=== PATIENT | male | born 1955 | race Caucasian/White ===

== ENCOUNTER 2017-07-10 06:05 | Day surgery (SDC) | payer BC ==
[2017-07-02 14:34] VITALS: BMI 27.5
[~2017-07-10 06:05] MED LIST: LACTATED RINGERS 1,000 ML IV SCH
[2017-07-10] MEDS: CYCLOPENTOLATE 1% OPHTH SOLN 2 ML BTL OP ONE ×2 (06:15→06:33)
[2017-07-10] MEDS: FLURBIPROFEN 0.03% OPHTH DROPS 2.5 ML BTL OP ONE ×3 (06:18→06:36)
[2017-07-10] MEDS: PHENYLEPHRINE 10% OPHTH DROPS 5 ML BTL OP ONE ×2 (06:21→06:30)
[2017-07-10 06:26] VITALS: RESP 16; TEMP 97.2
[2017-07-10] MEDS ORDERED: PROPOFOL 10 MG/ML 20 ML VIAL IV ONE (07:46)
[2017-07-10] MEDS ORDERED: LACTATED RINGERS 1,000 ML IV ONE (07:46)
[2017-07-10] MEDS: BUPIVACAINE (PF) 0.75% 5 ML, HYALURONIDASE, HUMAN RECOMB 150 UNIT, LIDOCAINE 2% (PF) 10... MISCELLANE ONE ×6 (07:46→07:57)
[2017-07-10] MEDS ORDERED: BALANCED SALT IRRIG SOLN COMB2 15 ML IRRIG.SOLN IRRIGATION ONE ×2 (07:46→08:00)
[2017-07-10] MEDS: TIMOLOL 0.5% OPHTH DROPS 5 ML BTL OP ONE ×2 (07:50→08:00)
[2017-07-10] MEDS: GENTAMICIN/PREDNISOL AC OPHTH OINT 3.5GM OPHTHALMIC ONE ×2 (07:50→08:00)
[2017-07-10] MEDS ORDERED: EPINEPHrine (PF) 0.5 ML in BALANCED SALT IRRIG SOLN COMB2 500 ML IRRIGATION ONE (07:58)
[2017-07-10] MEDS ORDERED: HYALURONATE SODIUM INTRAOCULAR 1 EACH SYRINGE (10MG/ML) INTRAOCULA ONE (08:00)
--- NOTE | 2017-07-10 08:15 | P.OP ---
Date of Procedure: 07/10/17 Procedure(s) Performed: PREOPERATIVE DIAGNOSIS: Cataract, left eye. POSTOPERATIVE DIAGNOSIS: Cataract, left eye. OPERATION: Phacoemulsification cataract, left eye. DESCRIPTION OF PROCEDURE: The patient was taken to the preoperative holding area. Intravenous Propofol was given so as to bring about adequate sedation. The following mixture was given for local anesthesia: 5 mL of 2% lidocaine, 5 mL of 0.75% Marcaine, and 1 mL of Wydase. Approximately 4 mL was injected in the retrobulbar space of the surgical eye. Additional 1 mL was then directed to the temporal area of the surgical eye. This was performed to allow adequate neurological block of the facial muscles. The patient was revived and then taken into the operative room. The patient was prepped and draped in the usual sterile manner for the operative eye. A lid speculum was put into position. The conjunctiva was resected back from the limbus in the 12 o'clock position. Bleeding was controlled with electrocautery. A #69 blade was then used and a half-thickness scleral incision approximately 1-mm posterior to the limbus was made on bare sclera. This was shelved in the clear cornea using a crescent knife. Next a 15-degree blade was used to make a stab incision at the 3 o' clock position at the corneolimbal interface. Keratome blade was then used and the superior wound was extended into the anterior chamber. Viscoelastic was injected into the anterior chamber and to maintain its form. Next, a cystotome was used and a continuous anterior capsulotomy was made without difficulty. Hydrodissection using a blunt cannula and BSS was performed. Phaco probe was then employed and a groove extending from 12 to 6 o'clock in the lens was created. A Gennaro wand was used through the stab incision so as to perform a divide and conquer technique. Next an irrigation aspiration probe was utilized and any residual cortex was removed from the eye. Again, viscoelastic was injected into the anterior chamber. An Karlos posterior chamber lens implant was placed in the cartridge and injected into the anterior chamber without difficulty. The SinBuySimpleey hook was utilized to spin the lens into position and this was again performed without any difficulty. The irrigation and aspiration probe was again employed and any residual viscoelastic was removed from the eye. Then BSS was injected into the limbal stab incision and the anterior chamber re-inflated. The conjunctiva was reapproximated using electrocautery. One drop of 0.25% Timoptic was placed over the corneal along with TobraDex ophthalmic ointment. Two sterile patches and a Norton eye shield were taped into position. The patient was transported to the recovery room in stable condition. Pathology: none sent Condition: stable Disposition: same day
[2017-07-10 08:35] VITALS: BP 138/90; PULSE 68
== END 2017-07-10 08:56 | disposition home or self-care (01) ==
LOC: OR 06:05
PROVIDERS: ATTEND Ophthalmology
DX: H26.9 Unspecified cataract (principal); E78.5 Hyperlipidemia, unspecified; Z79.82 Long term (current) use of aspirin; Z79.899 Other long term (current) drug therapy
CPT/HCPCS: 66984; V2632; J3470; J2001; J0171; J2704

== ENCOUNTER → 2017-10-24 | Outpatient (CLI) | payer BC ==
[2017-10-24 07:40] LABS: Basophils % (A) 1 %; Eosinophils # (A) 0.2 k/uL (0-0.7); Eosinophils % (A) 4 %; HCT 45.3 % (39.0-53.0); HGB 15.2 gm/dL (13.0-17.5); Lymphocytes # (A) 1.1 k/uL (1.0-4.8); Lymphocytes % (A) 24 %; MCH 31.9 pg (25.0-35.0); MCHC 33.5 g/dL (31.0-37.0); MCV 95.3 fL (80.0-100.0); Mean Platelet Volume 6.8; Monocytes # (A) 0.4 k/uL (0-1.0); Monocytes % (A) 9 %; Neutrophils # (A) 2.8 k/uL (1.3-7.7); Neutrophils % (A) 60 %; Platelet Count 228 k/uL (150-450); RBC 4.76 m/uL (4.30-5.90); RDW 12.1 % (11.5-15.5); WBC 4.6 k/uL (3.8-10.6)
[2017-10-24 11:31] LABS: ALT 39 U/L (21-72); AST 31 U/L (17-59); Albumin 4.3 g/dL (3.5-5.0); Alkaline Phosphatase 47 U/L (38-126); Anion Gap 14 mmol/L; Blood Urea Nitrogen 14 mg/dL (9-20); Calcium 9.4 mg/dL (8.4-10.2); Carbon Dioxide 27 mmol/L (22-30); Chloride 102 mmol/L (98-107); Cholesterol 156 mg/dL (<200); Glucose 86 mg/dL (74-99); HDL Cholesterol 57 mg/dL (40-60); LDL Cholesterol,Calculated 75 mg/dL (0-99); Potassium 4.5 mmol/L (3.5-5.1); Sodium 143 mmol/L (137-145); Total Bilirubin 0.6 mg/dL (0.2-1.3); Total Protein 6.8 g/dL (6.3-8.2); Triglycerides 120 mg/dL (<150)
[2017-10-24 11:46] LABS: T4, Free (Free Thyroxine) 1.05 ng/dL (0.78-2.19)
[2017-10-24 17:34] LABS: Hemoglobin A1C 5.4 % (4.0-6.0)
== END | disposition home or self-care (01) ==
LOC: LABWHC1 06:43
PROVIDERS: ATTEND Internal Medicine Geriatric Medicine
DX: Z00.00 Encounter for general adult medical examination without abnormal findings (principal); K21.9 Gastro-esophageal reflux disease without esophagitis; E78.00 Pure hypercholesterolemia, unspecified; R79.9 Abnormal finding of blood chemistry, unspecified; N40.0 Benign prostatic hyperplasia without lower urinary tract symptoms; R00.1 Bradycardia, unspecified
CPT/HCPCS: 36415; 80053; 80061; 83036; 84153; 84439; 84443; 85025

== ENCOUNTER → 2019-01-09 | Outpatient (CLI) | payer MEDICARE, BC ==
[2019-01-09 09:03] LABS: Basophils % (A) 1 %; Eosinophils # (A) 0.2 k/uL (0-0.7); Eosinophils % (A) 3 %; HCT 47.3 % (39.0-53.0); HGB 15.8 gm/dL (13.0-17.5); Lymphocytes # (A) 1.1 k/uL (1.0-4.8); Lymphocytes % (A) 22 %; MCH 33.5 pg (25.0-35.0); MCHC 33.5 g/dL (31.0-37.0); MCV 100.2 fL (80.0-100.0); Monocytes # (A) 0.4 k/uL (0-1.0); Monocytes % (A) 7 %; Neutrophils # (A) 3.3 k/uL (1.3-7.7); Neutrophils % (A) 64 %; Platelet Count 209 k/uL (150-450); RBC 4.72 m/uL (4.30-5.90); RDW 13.1 % (11.5-15.5); WBC 5.1 k/uL (3.8-10.6)
[2019-01-09 16:09] LABS: African American GFR (CKD) 104.2 (60.0-200.0); Albumin 4.8 g/dL (3.80-4.90); Albumin/Globulin Ratio 2.53 (1.60-3.17); Anion Gap 9.4 mmol/L (4.00-12.00); BUN/Creat Ratio 14.44 Ratio (12.00-20.00); Calcium 9.3 mg/dL (8.7-10.3); Carbon Dioxide 27.6 mmol/L (21.6-31.8); Chol/HDL Ratio 3.02; Globulin 1.9 g/dL (1.6-3.3); Non-African American GFR(CKD) 89.9 (60.0-200.0); Potassium 4.5 mmol/L (3.5-5.5); Total Bilirubin 0.6 mg/dL (0.2-1.2); Total Protein 6.7 g/dL (6.2-8.2)
== END | disposition home or self-care (01) ==
LOC: LABWHC1 08:01
PROVIDERS: ATTEND Internal Medicine Geriatric Medicine
DX: Z00.00 Encounter for general adult medical examination without abnormal findings (principal); K21.9 Gastro-esophageal reflux disease without esophagitis; E78.2 Mixed hyperlipidemia; R00.1 Bradycardia, unspecified; N40.0 Benign prostatic hyperplasia without lower urinary tract symptoms
CPT/HCPCS: 36415; 80053; 80061; 82550; 84153; 84443; 85025

== ENCOUNTER 2019-08-26 07:08 | Day surgery (SDC) | payer BC, MEDICARE ==
[2019-08-22 17:58] VITALS: BMI 26.9
[~2019-08-26 07:08] MED LIST changes: +TOBRA-DEXAMET 0.3-0.1% OPHTH OINT 3.5 GM TUBE OPHTHALMIC ONE
[2019-08-26] MEDS: CYCLOPENTOLATE 1% OPHTH SOLN 2 ML BTL OP ONE ×3 (07:55→08:13)
[2019-08-26 07:58] VITALS: TEMP 97.6
[2019-08-26] MEDS: PHENYLEPHRINE 10% OPHTH DROPS 5 ML BTL OP ONE ×3 (07:58→08:16)
[2019-08-26] MEDS: KETOROLAC 0.5% OPHTH DROPS 5 ML BTL OP ONE ×3 (08:01→08:19)
[2019-08-26] MEDS ORDERED: fentaNYL (PF) 50 MCG/ML 2 ML AMP ONE (08:39)
[2019-08-26] MEDS ORDERED: MIDAZOLAM 2 MG/2 ML VIAL ONE (08:39)
[2019-08-26] MEDS ORDERED: PROPOFOL 10 MG/ML 20 ML VIAL IV ONE (08:39)
[2019-08-26] MEDS ORDERED: BALANCED SALT IRRIG SOLN COMB2 15 ML IRRIG.SOLN INTRAOCULA ONE (08:49)
[2019-08-26] MEDS ORDERED: HYALURONATE SODIUM INTRAOCULAR 1 EACH SYRINGE (10MG/ML) INTRAOCULA ONE (08:49)
[2019-08-26] MEDS ORDERED: EPINEPHrine (PF) 0.5 ML in BALANCED SALT IRRIG SOLN COMB2 500 ML IRRIGATION ONE (08:50)
--- NOTE | 2019-08-26 09:05 | P.OP ---
Date of Procedure: 08/26/19 Procedure(s) Performed: PREOPERATIVE DIAGNOSIS: Cataract, right eye. POSTOPERATIVE DIAGNOSIS: Cataract, right eye. OPERATION: Phacoemulsification of cataract, intraocular lens placement, right eye. DESCRIPTION OF PROCEDURE: The patient was taken to the operating room. Intravenous Propofol was given so as to bring about sedation. The following mixture was given for local anesthesia: 5 mL of 2% lidocaine, 5 mL of 0.75% Marcaine, and 1 mL of Wydase. Approximately 4 mL was injected in the retrobu lbar space of the surgical eye. Additional 1 mL was then directed to the temporal area of the surgical eye. This was performed to allow adequate neurological block of the facial muscles. The patient was revived. The patient was prepped and draped in the usual sterile manner for the operative eye. A lid speculum was put into position. The conjunctiva was resected back from the limbus in the 12 o'clock position. Bleeding was controlled with electrocautery. A #69 blade was then used and a half-thickness scleral incision approximately 1-mm posterior to the limbus was made on bare sclera. This was shelved in the clear cornea using a crescent knife. Next a 15-degree blade was used to make a stab incision at the 3 o'clock position at the corneolimbal interface. A keratome blade was then used and the superior wound was extended into the anterior chamber. Viscoelastic was injected into the anterior chamber to maintain its form. A cystotome was used and a continuous anterior capsu lotomy was made. Hydrodissection of the lens cortex using a blunt cannula and BSS was performed. A phaco probe was then introduced and a groove extending from 12 to 6 o'clock in the lens was created. A Gennaro wand was used through the stab incision and used to perform a divide and conquer dismantling of the cataract. An irrigation aspiration probe was utilized and any residual cortex was removed from the eye. Again, viscoelastic was injected into the anterior chamber. An Karlos posterior chamber lens implant was placed in a delivery cartridge and injected into the anterior chamber. A Sinskey hook was utilized to spin the lens into position within the capsular bag. The irrigation and aspiration probe was again introduced and any residual viscoelastic was removed from the eye. BSS was injected via blunt canula into the limbal stab incision and the anterior chamber was re-inflated. The conjunctiva was reapproximated using electrocautery. One drop of 0.25% Timoptic was placed over the corneal along with an antibiotic ophthalmic ointment. Two sterile patches and a Norton eye shield were taped into position. The patient was transported to the recovery room in stable condition. Pathology: none sent Condition: stable Disposition: same day
[2019-08-26 09:19] VITALS: PULSE 69
[2019-08-26 09:42] VITALS: RESP 20
[2019-08-26 09:51] VITALS: BP 163/86
[2019-08-26] MEDS ORDERED: GENTAMICIN/PREDNISOL AC OPHTH OINT 3.5GM OPHTHALMIC ONE (23:00)
[2019-08-26] MEDS ORDERED: BUPIVACAINE (PF) 0.75% 5 ML, HYALURONIDASE, HUMAN RECOMB 150 UNIT, LIDOCAINE 2% (PF) 10... MISCELLANE ONE ×3 (23:00)
[2019-08-26] MEDS ORDERED: TIMOLOL 0.5% OPHTH DROPS 5 ML BTL OP ONE (23:00)
== END 2019-08-26 10:03 | disposition home or self-care (01) ==
LOC: OR 07:08
PROVIDERS: ATTEND Ophthalmology
DX: H25.11 Age-related nuclear cataract, right eye (principal); E78.5 Hyperlipidemia, unspecified; H40.059 Ocular hypertension, unspecified eye; Z79.82 Long term (current) use of aspirin; Z79.899 Other long term (current) drug therapy; Z98.42 Cataract extraction status, left eye; Z98.890 Other specified postprocedural states
CPT/HCPCS: 66984; V2632; J2250; J3470; J2001; J0171; J3010; J2704

== ENCOUNTER → 2020-06-22 | Outpatient (CLI) | payer MEDICARE ==
[2020-06-22 08:58] LABS: Basophils # (A) 0.1 k/uL (0-0.2); Basophils % (A) 1 %; Eosinophils # (A) 0.1 k/uL (0-0.7); Eosinophils % (A) 2 %; HCT 46.3 % (39.0-53.0); HGB 15.8 gm/dL (13.0-17.5); Lymphocytes % (A) 19 %; MCH 33.5 pg (25.0-35.0); MCHC 34.1 g/dL (31.0-37.0); MCV 98.2 fL (80.0-100.0); Mean Platelet Volume 6.7; Monocytes # (A) 0.5 k/uL (0-1.0); Monocytes % (A) 10 %; Neutrophils # (A) 3.2 k/uL (1.3-7.7); Neutrophils % (A) 65 %; Platelet Count 198 k/uL (150-450); RBC 4.71 m/uL (4.30-5.90); RDW 11.7 % (11.5-15.5)
[2020-06-22 15:58] LABS: African American GFR (CKD) 80.6 (60.0-200.0); Albumin 4.7 g/dL (3.80-4.90); Albumin/Globulin Ratio 2.24 (1.60-3.17); Anion Gap 8.4 mmol/L (4.00-12.00); BUN/Creat Ratio 12.73 Ratio (12.00-20.00); Calcium 9.4 mg/dL (8.7-10.3); Carbon Dioxide 28.6 mmol/L (21.6-31.8); Chol/HDL Ratio 2.97; Globulin 2.1 g/dL (1.6-3.3); LDL Cholesterol,Calculated 101.2 mg/dL (0.0-131.0); Non-African American GFR(CKD) 69.6 (60.0-200.0); Potassium 4.5 mmol/L (3.5-5.5); Total Bilirubin 0.9 mg/dL (0.2-1.2); Total Protein 6.8 g/dL (6.2-8.2); VLDL Calculation 22.8 mg/dL (5.00-40.00)
[2020-06-22 16:31] LABS: Prostate Specific Antigen 1.3 ng/mL (0.0-4.5)
[2020-06-22 18:40] LABS: Hemoglobin A1C 5.8 % (4.0-6.0)
== END | disposition home or self-care (01) ==
LOC: LABWHC1 07:53
PROVIDERS: ATTEND Internal Medicine Geriatric Medicine
DX: Z00.00 Encounter for general adult medical examination without abnormal findings (principal); E78.2 Mixed hyperlipidemia; R79.9 Abnormal finding of blood chemistry, unspecified; N40.0 Benign prostatic hyperplasia without lower urinary tract symptoms
CPT/HCPCS: 36415; 80053; 80061; 83036; 84153; 84443; 85025

== ENCOUNTER → 2021-04-20 | Outpatient (CLI) | payer MEDICARE ==
[2021-04-20 10:43] LABS: Basophils # (A) 0.02 X 10*3/uL (0.00-0.10); Basophils % (A) 0.5 %; Eosinophils # (A) 0.07 X 10*3/uL (0.04-0.35); Eosinophils % (A) 1.6 %; HCT 45.5 % (39.6-50.0); HGB 15.3 g/dL (13.0-17.0); Lymphocytes % (A) 25.4 %; MCH 33.8 pg (27.0-32.0); MCHC 33.6 g/dL (32.0-37.0); MCV 100.4 fL (80.0-97.0); Mean Platelet Volume 9.3 fL (9.5-12.2); Monocytes # (A) 0.45 X 10*3/uL (0.20-1.00); Monocytes % (A) 10.4 %; Neutrophils # (A) 2.65 X 10*3/uL (1.80-7.70); Neutrophils % (A) 61.2 %; Platelet Count 194 X 10*3/uL (140-440); RBC 4.53 X 10*6/uL (4.40-5.60); RDW 12.2 % (11.5-14.5); WBC 4.33 X 10*3/uL (4.50-10.00)
[2021-04-20 12:53] LABS: Albumin 4.5 g/dL (3.8-4.9); Albumin/Globulin Ratio 2.01 (1.60-3.17); Anion Gap 11.5 mmol/L (4.00-12.00); BUN/Creat Ratio 13.1 Ratio (12.00-20.00); Blood Urea Nitrogen 12.3 mg/dL (9.0-27.0); Calcium 9.3 mg/dL (8.7-10.3); Carbon Dioxide 25.1 mmol/L (21.6-31.8); Chol/HDL Ratio 2.91 Ratio; Globulin 2.2 g/dL (1.6-3.3); HDL Cholesterol 57.3 mg/dL (40.00-60.00); LDL Cholesterol,Calculated 77.7 mg/dL (0.0-131.0); Non-African American GFR(CKD) 83.7 (60.0-200.0); Potassium 4.6 mmol/L (3.5-5.5); Total Bilirubin 0.7 mg/dL (0.30-1.20); Total Protein 6.7 g/dL (6.2-8.2)
== END | disposition home or self-care (01) ==
LOC: LABWHC1 07:13
PROVIDERS: ATTEND Nurse Practitioner Gerontology
DX: E78.2 Mixed hyperlipidemia (principal); R79.9 Abnormal finding of blood chemistry, unspecified; R00.1 Bradycardia, unspecified
CPT/HCPCS: 36415; 80053; 80061; 83036; 84443; 85025

== ENCOUNTER → 2021-08-12 | Outpatient (CLI) | payer MEDICARE ==
--- NOTE | 2021-08-12 11:38 | US ---
EXAMINATION TYPE: US venous doppler duplex LE LT DATE OF EXAM: 08/12/2021 11:30 AM COMPARISON: NONE CLINICAL HISTORY: R60.0 EDEMA. SIDE PERFORMED: TECHNIQUE: The lower extremity deep venous system is examined utilizing real time linear array sonog mehreen with graded compression, doppler sonography and color-flow sonography. VESSELS IMAGED: Common Femoral Vein Deep Femoral Vein Greater Saphenous Vein * Femoral Vein Popliteal Vein Small Saphenous Vein * Proximal Calf Veins (* superficial vessels) Left Leg: Positive for DVT left peroneal veins. IMPRESSION: DVT noted within the peroneal veins.
--- NOTE | 2021-08-12 14:06 | XR ---
EXAMINATION TYPE: XR chest 2V DATE OF EXAM: 08/12/2021 COMPARISON: NONE HISTORY: Chronic cough TECHNIQUE: Frontal and lateral views of the chest are obtained. FINDINGS: There is no focal air space opacity, pleural effusion, or pneumothorax seen. There is some what prominent lung volumes which can be seen in underlying COPD, correlate. Bronchial wall thickenin g is noted. The cardiac silhouette size is within normal limits. Calcified granuloma is suspected in left lower lobe. Biapical pleural thickening is present. Superior displacement of the left clavicle i n relation to the acromion is noted. The osseous structures are intact, there is thoracic spondylosi s. IMPRESSION: Correlate for bronchitis. Follow-up as indicated. 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
== END | disposition home or self-care (01) ==
LOC: RADUSWWP 10:56
PROVIDERS: ATTEND Internal Medicine Geriatric Medicine
DX: I82.452 Acute embolism and thrombosis of left peroneal vein (principal); R05.3 Chronic cough
CPT/HCPCS: 71046

== ENCOUNTER → 2022-05-30 | Outpatient (CLI) | payer MEDICARE ==
[2022-05-30 15:00] LABS: ALT 35 U/L (10-49); AST 30 U/L (14-35); African American GFR (CKD) 89.2 (60.0-200.0); Albumin 4.7 g/dL (3.8-4.9); Albumin/Globulin Ratio 2.14 (1.60-3.17); Alkaline Phosphatase 59 U/L (41-126); Blood Urea Nitrogen 14.1 mg/dL (9.0-27.0); Calcium 9.5 mg/dL (8.7-10.3); Carbon Dioxide 26.7 mmol/L (20.0-27.5); Chloride 101 mmol/L (96-109); Chol/HDL Ratio 3.11 Ratio; Globulin 2.2 g/dL (1.6-3.3); Glucose 109 mg/dL (70-110); LDL Cholesterol,Calculated 101.1 mg/dL (0.0-131.0); Potassium 4.8 mmol/L (3.5-5.5); Sodium 139 mmol/L (135-145); Total Protein 6.9 g/dL (6.2-8.2)
[2022-05-30 16:47] LABS: Basophils # (A) 0.02 X 10*3/uL (0.00-0.10); Basophils % (A) 0.4 %; Eosinophils # (A) 0.08 X 10*3/uL (0.04-0.35); Eosinophils % (A) 1.5 %; HCT 45.2 % (39.6-50.0); HGB 15.5 g/dL (13.0-17.0); Immature Grans, Automated 0.4 %; Lymphocytes # (A) 1.15 X 10*3/uL (0.90-5.00); Lymphocytes % (A) 22.1 %; MCHC 34.3 g/dL (32.0-37.0); MCV 96.2 fL (80.0-97.0); Mean Platelet Volume 9.6 fL (9.5-12.2); Monocytes # (A) 0.58 X 10*3/uL (0.20-1.00); Monocytes % (A) 11.1 %; NRBC Per 100 WBC 0 /100 WBCS (0.0-0.0); Neutrophils # (A) 3.36 X 10*3/uL (1.80-7.70); Neutrophils % (A) 64.5 %; Platelet Count 210 X 10*3/uL (140-440); RDW 11.7 % (11.5-14.5); WBC 5.21 X 10*3/uL (4.50-10.00)
== END | disposition home or self-care (01) ==
LOC: LABWHC1 07:10
PROVIDERS: ATTEND Internal Medicine Geriatric Medicine
DX: Z00.00 Encounter for general adult medical examination without abnormal findings (principal); E78.2 Mixed hyperlipidemia; N40.0 Benign prostatic hyperplasia without lower urinary tract symptoms; R79.9 Abnormal finding of blood chemistry, unspecified
CPT/HCPCS: 36415; 80053; 80061; 83036; 84153; 84443; 85025

== ENCOUNTER → 2023-05-16 | Outpatient (CLI) | payer MEDICARE ==
--- NOTE | 2023-05-16 16:06 | US ---
EXAMINATION TYPE: US venous doppler duplex LE LT DATE OF EXAM: 05/16/2023 3:39 PM COMPARISON: 2021 CLINICAL INDICATION: Male, 68 years old with history of I82.402 DVT; H/o DVT in left peroneal vein 20 22 SIDE PERFORMED: left TECHNIQUE: The lower extremity deep venous system is examined utilizing real time linear array sonog mehreen with graded compression, doppler sonography and color-flow sonography. VESSELS IMAGED: Common Femoral Vein Deep Femoral Vein Greater Saphenous Vein * Femoral Vein Popliteal Vein Small Saphenous Vein * Proximal Calf Veins (* superficial vessels) Left Leg: Negative for DVT IMPRESSION: 1. Left lower extremity ultrasound negative for deep venous thrombosis.
== END | disposition home or self-care (01) ==
LOC: RADUSWWP 15:15
PROVIDERS: ATTEND Internal Medicine Geriatric Medicine
DX: I82.402 Acute embolism and thrombosis of unspecified deep veins of left lower extremity (principal)

== ENCOUNTER 2024-05-05 16:09 | Inpatient (IN) | payer MEDICARE ==
--- NOTE | 2024-05-05 16:52 | XR ---
EXAMINATION TYPE: XR chest 2V DATE OF EXAM: 05/05/2024 4:48 PM COMPARISON: Previous chest radiograph 08/12/2021. CLINICAL INDICATION: Male, 69 years old with history of dysrhythmia; [facility] TECHNIQUE: XR chest 2V Frontal and lateral views of the chest. FINDINGS: Cardiac silhouette within normal limits for size. No acute focal consolidation. No pleural effusion. No pneumothorax. Stable 4 mm nodular density in the lateral aspect of the left lower lobe. No acute osseous abnormality. IMPRESSION: No acute cardiopulmonary disease/process. [facility], , 05/05/2024 4:50 PM
--- NOTE | 2024-05-05 16:54 | ED ---
General Adult HPI - General Chief complaint: Arrhythmia/Palpitations Stated complaint: Cardiac issues Time Seen by Provider: 05/05/24 16:30 Source: patient Mode of arrival: ambulatory Limitations: no limitations - History of Present Illness Initial comments: Dictation was produced using [employer] dictation software. please excuse any grammatical, word or spelling errors. Chief Complaint: 69-year-old male presents to the emergency department for chest pain and concern for new onset a flutter History of Present Illness: Patient is a 69-year-old male sent in by primary care doctor. He woke up this morning started to feel short of breath with chest pressure. Primary care doctor saw patient in the office told to come to the emergency department there was concern that patient has new onset a flutter. Patient is history of high cholesterol. Patient complains of pressure in his chest nonradiating. States that it was associate with some nausea this morning. Patient [place] any history of cardiac conditions. Does report s extensive family history of coronary artery disease and major adverse cardiac events. Patient has history of DVT that he attributes to COVID-vaccine years ago. Patient states that at the bedside he does not have any chest pain unless he takes a deep breath. The ROS documented in this emergency department record has been reviewed and confirmed by me. Those systems with pertinent positive or negative responses have been documented in the HPI. All other systems are other negative and/or noncontributory. - Related Data Home Medications Medication Instructions Recorded Confirmed Aspirin 81 mg PO DAILY 07/27/14 08/22/19 Atorvastatin [Lipitor] 40 mg PO HS 07/27/14 08/22/19 Allergies Allergy/AdvReac Type Severity Reaction Status Date / Time No Known Allergies Allergy Verified 05/05/24 16:18 Review of Systems ROS Statement: Those systems with pertinent positive or pertinent negative responses have been documented in the HPI. ROS Other: All systems not noted in ROS Statement are negative. Past Medical History Past Medical History: Eye Disorder, Hyperlipidemia Additional Past Medical History / Comment(s): LT EYE CATARACT History of Any Multi-Drug Resistant Organisms: None Reported Past Surgical History: Orthopedic Surgery Additional Past Surgical History / Comment(s): RT ROTATOR CUFF REPAIR. Lt cataract removal. COLONOSCOPY Past Anesthesia/Blood Transfusion Reactions: No Reported Reaction Past Psychological History: No Psychological Hx Reported Smoking Status: Former smoker Past Alcohol Use History: Daily Past Drug Use History: None Reported - Past Family History Mother Family Medical History: No Reported History General Exam - General Exam Comments Initial Comments: PHYSICAL EXAM: General Impression: Alert and oriented x3, not in acute distress HEENT: Normocephalic atraumatic, extra-ocular movements intact, pupils equal and reactive to light bilaterally, mucous membranes moist. Cardiovascular: Heart regular rate and rhythm Chest: Able to complete full sentences, no retractions, no tachypnea Abdomen: abdomen soft, non-tender, non-distended, no organomegaly Musculoskeletal: Pulses present and equal in all extremities, no peripheral edema Motor: no focal deficits noted Neurological: CN II-XII grossly intact, no focal motor or sensory deficits noted Skin: Intact with no visualized rashes Psych: Normal affect and mood Limitations: no limitations Course Vital Signs 05/05/24 05/05/24 05/05/24 16:14 17:05 18:24 Temperature 98.2 F Pulse Rate 108 H 110 H 95 Respiratory 18 20 20 Rate Blood Pressure 177/108 166/97 160/105 O2 Sat by Pulse 95 93 L 94 L Oximetry - Reevaluation(s) Reevaluation #1: 05/05/24 18:09 Case discussed with on-call [facility] c covering physician, Dr. Lomeli including i maging studies, lab evaluation and discussion on patient's clinical condition and vital signs. Request echocardiogram be ordered and that heparin started. EKG Findings - EKG Comments: EKG Findings:: My EKG interpretation: Ventricular rate 115, sinus tachycardia,. 173, right bundle branch block, QRS 125, QTc 397. No OK prolongation, no QTC prolongation, no ST or T-wave changes noted. Overall, this EKG is unremarkable Medical Decision Making - Medical Decision Making Was pt. sent in by a medical professional or institution (, PA, LYMPHEDEMA THERAPIST, urgent care, hospital, or snf...) When possible be specific @ -From PCPs office Did you speak to anyone other than the patient for history (EMS, parent, family, police, friend...)? What history was obtained from this source @ - at the bedside as described above Did you review nursing and triage notes (agree or disagree)? Why? @ -I reviewed and agree with nursing and triage notes Were old charts reviewed (outside hosp., previous admission, EMS record, old EKG, old radiological studies, urgent care reports/EKG's, snf records)? Report findings @ -No old charts were reviewed Differential Diagnosis (chest pain, altered mental status, abdominal pain women, abdominal pain men, vaginal bleeding, musculoskeletal, weakness, fever, dyspnea, syncope, headache, dizziness, GI bleed, back pain, seizure, CVA, palpatations, mental health)? @ -Differential Chest Pain: Stable Angina, Unstable Angina, STEMI, NSTEMI Aortic Dissection, Pneumothorax, Musculoskeletal, Esophageal Spasm GERD, Cholecystitis, Pancreatitis, Zoster, this is not meant to be an all-inclusive list. EKG interpreted by me (3pts min.). @ -See above X-rays interpreted by me (1pt min.). @ -Chest x-ray shows no acute processes CT interpreted by me (1pt min.). @ -CT angiography of the chest shows saddle PE U/S interpreted by me (1pt. min.). @ -None done What testing was considered but not performed or refused? (CT, X-rays, U/S, labs)? Why? @ -None What meds were considered but not given or refused? Why? @ -None Was smoking cessation discussed for >3mins.? @ -No Were there social determinants of health that impacted care today? How? (Homelessness, low income, unemployed, alcoholism, drug addiction, transportation, low edu. Level, literacy, decrease access to med. care, fdc, rehab)? @ -No Was there de-escalation of care discussed even if they declined (Discuss DNR or withdrawal of care, Hospice)? DNR status @ -No What co-morbidities impacted this encounter? (DM, HTN, Smoking, COPD, CAD, Cancer, CVA, ARF, Chemo, Hep., AIDS, mental health diagnosis, sleep apnea, morbid obesity)? @ -History of DVT Was patient admitted / discharged? Hospital course, mention meds given and route, prescriptions, significant lab abnormalities, going to OR and other pertinent info. @ -6-year-old male presents to the emergency department with chest pain and shortness of breath. Vital signs upon arrival shows tachycardia 108, rest of vital signs within acceptable limits. Laboratory evaluation obtained. D-dimer is 18.3 with troponin of 0.6, rest of labs unremarkable. X-ray is nonacute. CT angiography shows large saddle PE. There is evidence of right heart strain on imaging studies along with troponin. Patient reevaluated at bedside 6:30 PM found to be stable to condition. Case discussed with vascular surgery as described above. Case also discussed with pulmonary who will accept patient to the ICU. Patient started on heparin. Admitted to ICU. Did you discuss the management of the patient with other professionals (professionals i.e. , PA, LYMPHEDEMA THERAPIST, lab, RT, psych nurse, social sciences lecturer, carton forming machine tender, teacher, purchasing officer, case operator)? Give summary @ -See above Was critical care preformed (if so, how long)? @ -Yes, 77 minutes Undiagnosed new problem with uncertain prognosis? @ -No Drug Therapy requiring intensive monitoring for toxicity (Heparin, Nitro, Insulin, Cardizem)? @ -Heparin Were any procedures done? @ -No Diagnosis/symptom? Acute, or Chronic, or Acute on Chronic? Uncomplicated (without systemic symptoms) or Complicated (systemic symptoms)? @ -Saddle PE Side effects of treatment? @ -No Exacerbation, Progression, or Severe Exacerbation? @ -No Poses a threat to life or bodily function? How? (Chest pain, USA, SD, pneumonia, PE, COPD, DKA, ARF, appy, cholecystitis, CVA, Diverticulitis, Homicidal, Suicidal, threat to staff... and all critical care pts) @ -yes - Lab Data Result diagrams: 05/05/24 16:32 05/05/24 16:32 Lab Results 05/05/24 05/05/24 05/05/24 Range/Units 16:32 16:32 16:32 WBC 9.5 (3.8-10.6) k/uL RBC 5.14 (4.30-5.90) m/uL Hgb 17.5 (13.0-17.5) gm/dL Hct 50.9 (39.0-53.0) % MCV 99.0 (80.0-100.0) fL MCH 34.0 (25.0-35.0) pg MCHC 34.4 (31.0-37.0) g/dL RDW 11.7 (11.5-15.5) % Plt Count 251 (150-450) k/uL MPV 7.0 Neutrophils % 78 % Lymphocytes % 13 % Monocytes % 7 % Eosinophils % 1 % Basophils % 1 % Neutrophils # 7.4 (1.3-7.7) k/uL Lymphocytes # 1.2 (1.0-4.8) k/uL Monocytes # 0.7 (0-1.0) k/uL Eosinophils # 0.1 (0-0.7) k/uL Basophils # 0.1 (0-0.2) k/uL PT 10.7 (10.0-12.5) sec INR 1.0 (<1.2) APTT 24.4 (22.0-30.0) sec D-Dimer 18.36 H (<0.60) mg/L FEU Sodium 143 (137-145) mmol/L Potassium 4.7 (3.5-5.1) mmol/L Chloride 102 (98-107) mmol/L Carbon Dioxide 28 (22-30) mmol/L Anion Gap 13 mmol/L BUN 8 L (9-20) mg/dL Creatinine 0.83 (0.66-1.25) mg/dL Est GFR (CKD-EPI)AfAm >90 (>60 ml/min/1.73 sqM) Est GFR (CKD-EPI)NonAf 89 (>60 ml/min/1.73 sqM) Glucose 111 H (74-99) mg/dL Calcium 9.5 (8.4-10.2) mg/dL Magnesium 2.0 (1.6-2.3) mg/dL Total Bilirubin 0.6 (0.2-1.3) mg/dL AST 35 (17-59) U/L ALT 28 (4-49) U/L Alkaline Phosphatase 74 (38-126) U/L Troponin I (0.000-0.034) ng/mL Total Protein 8.6 H (6.3-8.2) g/dL Albumin 5.1 H (3.5-5.0) g/dL 05/05/24 Range/Units 16:32 WBC (3.8-10.6) k/uL RBC (4.30-5.90) m/uL Hgb (13.0-17.5) gm/dL Hct (39.0-53.0) % MCV (80.0-100.0) fL MCH (25.0-35.0) pg MCHC (31.0-37.0) g/dL RDW (11.5-15.5) % Plt Count (150-450) k/uL MPV Neutrophils % % Lymphocytes % % Monocytes % % Eosinophils % % Basophils % % Neutrophils # (1.3-7.7) k/uL Lymphocytes # (1.0-4.8) k/uL Monocytes # (0-1.0) k/uL Eosinophils # (0-0.7) k/uL Basophils # (0-0.2) k/uL PT (10.0-12.5) sec INR (<1.2) APTT (22.0-30.0) sec D-Dimer (<0.60) mg/L FEU Sodium (137-145) mmol/L Potassium (3.5-5.1) mmol/L Chloride (98-107) mmol/L Carbon Dioxide (22-30) mmol/L Anion Gap mmol/L BUN (9-20) mg/dL Creatinine (0.66-1.25) mg/dL Est GFR (CKD-EPI)AfAm (>60 ml/min/1.73 sqM) Est GFR (CKD-EPI)NonAf (>60 ml/min/1.73 sqM) Glucose (74-99) mg/dL Calcium (8.4-10.2) mg/dL Magnesium (1.6-2.3) mg/dL Total Bilirubin (0.2-1.3) mg/dL AST (17-59) U/L ALT (4-49) U/L Alkaline Phosphatase (38-126) U/L Troponin I 0.600 H* (0.000-0.034) ng/mL Total Protein (6.3-8.2) g/dL Albumin (3.5-5.0) g/dL Disposition Clinical Impression: Pulmonary emboli Disposition: ADMITTED IP TO THIS [facility] Condition: Critical Referrals: Bi Espana MD [Primary Care Provider] - 1-2 days Decision Time: 18:31
[2024-05-05 17:05] LABS: Basophils # (A) 0.1 k/uL (0-0.2); Basophils % (A) 1 %; Eosinophils # (A) 0.1 k/uL (0-0.7); Eosinophils % (A) 1 %; HCT 50.9 % (39.0-53.0); HGB 17.5 gm/dL (13.0-17.5); Lymphocytes # (A) 1.2 k/uL (1.0-4.8); Lymphocytes % (A) 13 %; MCHC 34.4 g/dL (31.0-37.0); Monocytes # (A) 0.7 k/uL (0-1.0); Monocytes % (A) 7 %; Neutrophils # (A) 7.4 k/uL (1.3-7.7); Neutrophils % (A) 78 %; Platelet Count 251 k/uL (150-450); RBC 5.14 m/uL (4.30-5.90); RDW 11.7 % (11.5-15.5); WBC 9.5 k/uL (3.8-10.6)
[2024-05-05] MEDS: ASPIRIN 81 MG PO STA (17:05)
[2024-05-05 17:20] LABS: ALT 28 U/L (4-49); African American GFR (CKD) >90 (>60 ml/min/1.73 sqM); Albumin 5.1 g/dL (3.5-5.0); Anion Gap 13 mmol/L; Blood Urea Nitrogen 8 mg/dL (9-20); Calcium 9.5 mg/dL (8.4-10.2); Carbon Dioxide 28 mmol/L (22-30); Chloride 102 mmol/L (98-107); Glucose 111 mg/dL (74-99); Non-African American GFR(CKD) 89 (>60 ml/min/1.73 sqM); Sodium 143 mmol/L (137-145); Total Bilirubin 0.6 mg/dL (0.2-1.3); Total Protein 8.6 g/dL (6.3-8.2)
[2024-05-05 17:27] LABS: Partial Thromboplastin Time 24.4 sec (22.0-30.0); Prothrombin Time 10.7 sec (10.0-12.5)
[2024-05-05 17:42] LABS: Potassium 4.7 mmol/L (3.5-5.1)
[2024-05-05 17:43] LABS: AST 35 U/L (17-59); Alkaline Phosphatase 74 U/L (38-126)
[2024-05-05] MEDS ORDERED: HEPARIN SODIUM 1,000 UN/ML (10ML VL) IV PRN (18:02)
--- NOTE | 2024-05-05 18:11 | CT ---
EXAMINATION TYPE: CT angio chest DATE OF EXAM: 05/05/2024 5:59 PM COMPARISON: Chest radiograph 05/05/2024. CLINICAL INDICATION: Male, 69 years old with history of positive D-dimer; Elevated D-dimer, SOB, Slig ht chest discomfort. TECHNIQUE/CONTRAST: CTA scan of the thorax is performed with IV Contrast, patient injected with 100 ml mL of Isovue 370, MIP images are created and reviewed these are created on a separate workstation.. CT DLP: 435 mGycm, Automated exposure control for dose reduction was used. FINDINGS: Pulmonary Artery: Extensive low-density filling defects throughout the bilateral main, lobar, segment al and subsegmental pulmonary artery branches with massive clot burden. There is dilated RV/LV ratio with mild bowing of the intraventricular septum suggestive of right heart strain. The pulmonary arter y is of normal size. Lungs/Pleura: Trace bilateral pleural effusions. No acute focal consolidation. No pneumothorax. Airway: Large airways are patent. Heart: Heart is within normal limits for size. Coronary artery calcifications Vasculature: No evidence of aortic aneurysm. Mediastinum: No gross evidence of adenopathy. Musculoskeletal: No acute osseous abnormalities Soft Tissues/lymph nodes: Unremarkable. Lower neck: No significant findings. Upper Abdomen: No acute abnormality is. Decreased hepatic parenchymal attenuation suggesting steatosi s. Calcified splenic granulomas. IMPRESSION: 1. Acute pulmonary emboli involving the bilateral main, lobar, segmental and subsegmental pulmonary artery branches with overall large clot burden. Additionally, there are CT findings suggestive of rig ht heart strain. 2. Trace bilateral pleural effusions. *Critical results were discussed with Dr. Poe at 6:02 PM on 05/05/2024. [facility], , 05/05/2024 6:09 PM
[2024-05-05] MEDS ORDERED: NALOXONE 0.4 MG/ML 1 ML VIAL IV PRN (18:25)
[2024-05-05] MEDS: HEPARIN SODIUM 1,000 UN/ML (10ML VL) IV ONE (18:32)
[2024-05-05] MEDS: HEPARIN SOD,PORK IN 0.45% NACL 25,000 UNIT in 0.45% NACL 1 250ML.BAG IV SCH (18:33)
[2024-05-05] MEDS: SODIUM CHLORIDE 0.9% 1,000 ML IV SCH (18:44)
[2024-05-05 20:49] LABS: Glucose,Whole Blood 104 mg/dL (70-110)
--- NOTE | 2024-05-06 00:34 | US ---
EXAMINATION TYPE: US venous doppler duplex LE BI DATE OF EXAM: 05/06/2024 12:21 AM COMPARISON: Left lower extremity 05/16/23 CLINICAL INDICATION: Male, 69 years old with history of rule out DVT; Patient states hx of calf DVT i n 2021. No swelling, redness or warmth currently. PE , TECHNIQUE: The lower extremity deep venous system is examined utilizing real time linear array sonog mehreen with graded compression, color doppler sonography, and spectral doppler. SIDE PERFORMED: Bilateral FINDINGS: VESSELS IMAGED: Common Femoral Vein Deep Femoral Vein Greater Saphenous Vein * Femoral Vein Popliteal Vein Small Saphenous Vein * Proximal Calf Veins (* superficial vessels) Right Leg: Negative for DVT, Color Doppler imaging shows patency of the vessels. Spectral waveforms are within normal limits. Left Leg: Echoes seen within the proximal popliteal vein. This area appears non-occlusive, IMPRESSION: Suspect partial acute deep venous thrombus in the proximal popliteal vein. [facility], , 05/06/2024 12:32 AM
--- NOTE | 2024-05-06 02:41 | P.CNPUL ---
History of Present Illness Consult date: 05/06/24 Requesting physician: Eugenio Poe Reason for consult: pulmonary embolism Chief complaint: Shortness of breath, palpitations, substernal chest pain History of present illness: Patient is a 69-year-old white male with past medical history significant for hyperlipidemia, left lower extremity DVT. Starting yesterday, patient developed acute shortness of breath with any activity, subsides with rest. Associated symptoms including diaphoresis, heart palpitations, and substernal chest pain with deep breathing. He has had a dry non-productive for three weeks. No infectious symptoms. Patient does report history of left lower extremity blood clots, he completed outpatient treatment with Eliquis. He is not currently on any anticoagulation. Denies recent hospitalization, surgeries, trauma, prolonged travel. Denies unilateral lower extremity swelling or pain. He did present to the ED department yesterday evening, underwent chest CTA protocol showing an acute saddle pulmonary emboli involving the bilateral main, lobar, segmental and septic segmental pulmonary artery branches. Flattening of the interventricular septum suggestive of right heart strain. Pulmonary artery was of normal size. No acute process of the parenchyma. He was admitted to the intensive care unit. I am currently evaluating this patient in room 265. He is resting comfortably on 2 L/min nasal cannula. Breathing is non-labored. Blood pressure is actually hypertensive. A follow-up echocardiogram is pending. Vascular surgery has been made aware. He is currently on a high intensity heparin infusion per protocol. Normal saline is also infusing at 130 mL/h. hemodynamically, patient is stable. Nontachycardic. He is actually hypertensive. CBC: WBC count 9.5, hemoglobin 17.5, hematocrit 50.9, platelets 251. D-dimer was elevated at 18.36. CMP: Sodium 143, potassium 4.7, chloride 102, serum bicarb 28, BUN 8, creatinine 0.83, glucose 111. LFTs unremarkable. Serial troponins elevated at 0.6, 0.48, and 0.48 respectively. Awaiting vascular recommendations. Review of Systems Constitutional: Reports sweats, Denies chills, Denies fatigue, Denies fever, Denies night sweats, Denies poor appetite, Denies weight gain, Denies weight loss Ears, nose, mouth and throat: Denies epistaxis, Denies headache, Denies nasal congestion, Denies nasal discharge, Denies post-nasal drip, Denies sinus pain, Denies sinus pressure, Denies sore throat Cardiovascular: Reports chest pain, Reports dyspnea on exertion, Reports palp itations, Reports shortness of breath, Denies leg edema, Denies lightheadedness, Denies orthopnea, Denies paroxysmal nocturnal dyspnea, Denies syncope Respiratory: Denies cough Past Medical History Past Medical History: Eye Disorder, Hyperlipidemia Additional Past Medical History / Comment(s): LT EYE CATARACT History of Any Multi-Drug Resistant Organisms: None Reported Past Surgical History: Orthopedic Surgery Additional Past Surgical History / Comment(s): RT ROTATOR CUFF REPAIR. Lt cataract removal. COLONOSCOPY Past Anesthesia/Blood Transfusion Reactions: No Reported Reaction Past Psychological History: No Psychological Hx Reported Smoking Status: Former smoker Past Alcohol Use History: Daily Additional Past Alcohol Use History / Comment(s): QUIT SMOKING APPROX 1994, SMOKED SINCE AGE 17 Past Drug Use History: None Reported - Past Family History Mother Family Medical History: No Reported History Medications and Allergies Home Medications Medication Instructions Recorded Confirmed Type Aspirin 81 mg PO HS 07/27/14 05/05/24 History Rosuvastatin [Crestor] 20 mg PO HS 05/05/24 05/05/24 History Allergies Allergy/AdvReac Type Severity Reaction Status Date / Time No Known Allergies Allergy Verified 05/05/24 16:18 Physical Exam Vitals: Vital Signs Temp Pulse Resp BP Pulse Ox 05/05/24 23:00 81 14 162/97 93 L 05/05/24 22:00 87 18 158/107 92 L 05/05/24 21:00 89 10 L 177/110 94 L 05/05/24 20:50 98 20 177/110 05/05/24 19:56 91 18 171/109 97 05/05/24 18:36 95 05/05/24 18:24 95 20 160/105 94 L 05/05/24 17:05 110 H 20 166/97 93 L 05/05/24 16:14 98.2 F 108 H 18 177/108 95 Intake and Output 05/05/24 05/05/24 05/06/24 14:59 22:59 06:59 Intake Total 260 130 Balance 260 130 Intake: Intake, IV Titration 260 130 Amount Sodium Chloride 0.9% 1, 260 130 000 ml @ 130 mls/hr IV . [id number] [facility] Rx#:[id number] Other: Weight 99.79 kg GENERAL EXAM: Alert, 69-year-old male, sitting up in bed, 2 L/min nasal cannula. Comfortable in no apparent distress. HEAD: Normocephalic and atraumatic EYES: Normal reaction of pupils, equal size. NOSE: Clear with pink turbinates. THROAT: No erythema or exudates. NECK: No masses, no JVD. CHEST: No chest wall deformity. LUNGS: Equal air entry with no crackles, wheeze, rhonchi or dullness. On 2 L/min nasal cannula. No conversational dyspnea or accessory muscle use.. CVS: S1 and S2 normal with no audible murmur, regular rhythm. No extra heart sounds ABDOMEN: No hepatosplenomegaly, active bowel sounds, no guarding or rigidity. SPINE: No scoliosis or deformity SKIN: No rashes CENTRAL NERVOUS SYSTEM: No focal deficits, tone is normal in all 4 extremities. EXTREMITIES: There is no peripheral edema, clubbing, or cyanosis. Peripheral pulses are intact. Results - Laboratory Findings CBC and BMP: 05/06/24 11:20 05/06/24 06:12 PT/INR, D-dimer PT 10.7 sec (10.0-12.5) 05/05/24 16:32 INR 1.0 (<1.2) 05/05/24 16:32 D-Dimer 18.36 mg/L FEU (<0.60) H 05/05/24 16:32 Abnormal lab findings: Abnormal Labs 05/05/24 05/05/24 05/05/24 16:32 16:32 16:32 D-Dimer 18.36 H BUN 8 L Glucose 111 H Troponin I 0.600 H* Total Protein 8.6 H Albumin 5.1 H 05/05/24 05/05/24 18:27 19:40 D-Dimer BUN Glucose Troponin I 0.482 H* 0.484 H* Total Protein Albumin - Diagnostic Findings Chest x-ray: image reviewed CT scan - chest: image reviewed Assessment and Plan Assessment: Submassive, acute saddle pulmonary emboli involving the bilateral main, lobar, segmental and septic segmental pulmonary artery branches. Flattening of the interventricular septum suggestive of right heart strain. Pulmonary artery was of normal size. No acute process of the parenchyma. Acute hypoxemic respiratory failure, secondary to above Elevated troponins, secondary to above History of hyperlipidemia History of left lower extremity DVT (2021), previously completed anticoagulation History of herpes zoster Former tobacco dependence Plan: Patient is admitted to the intensive care unit Hemodynamics have remained stable, continue supplemental oxygen to maintain oxygen saturation of 92% or greater Transthoracic echocardiogram pending Vascular surgery has been consulted for possible EKOS procedure or suction thrombectomy Currently on high intensity heparin infusion protocol Bilateral lower extremity venous Doppler pending Prognosis is guarded. We will continue to follow I have personally seen and examined the patient, performed the documentation and the assessment and plan as written. Number of minutes spent on the visit:20 A joint evaluation being done with the nurse practitioner. The patient has previous history of DVT of the left lower extremity back in 2021 following a COVID-19 vaccination. The patient was briefly treated with anticoagulation. The patient comes into the hospital because of worsening shortness of breath and chest pain. CT of the chest showed a saddle embolus including filling defects in the bilateral lobar and segmental branches of the pulmonary arteries. There is also flattening of the interventricular septum suggesting of RV strain. The patient is currently on 2 L of oxygen by nasal cannula. The patient is also on anticoagulation utilizing IV heparin. Echocardiogram was performed yesterday and the patient was found to have preserved LV function, mild to moderate tricuspid regurgitation with moderate degree of pulm hypertension and dilation of the RV with hypokinesis and the PA pressures were not accurately estimated, n evertheless it was thought to be in the range of 45 mmHg. The patient remains hemodynamically stable. Hemoglobin is currently at 14.2, the white cell count is 6.9, platelet count is at 2015, BUN is at 10 with a creatinine of 0.8 and sodium is at 137. Troponins were elevated. The patient is on IV heparin. Case was discussed with vascular surgery and the patient will be taken to the vascular lab for clot thrombectomy versus intra-arterial thrombolytic therapy using the EKOS system. The patient was brought back to the intensive care unit following the procedure. Will continue to follow. Time with Patient: Greater than 30
[2024-05-06 06:38] LABS: HCT 39.5 % (39.0-53.0); MCH 32.8 pg (25.0-35.0); MCHC 33.4 g/dL (31.0-37.0); MCV 98.2 fL (80.0-100.0); Mean Platelet Volume 7.3; Platelet Count 211 k/uL (150-450); RBC 4.03 m/uL (4.30-5.90); RDW 12.2 % (11.5-15.5); WBC 7.5 k/uL (3.8-10.6)
[2024-05-06 06:41] LABS: HGB 13.2 gm/dL (13.0-17.5)
[2024-05-06 06:48] LABS: African American GFR (CKD) >90 (>60 ml/min/1.73 sqM); Anion Gap 3 mmol/L; Blood Urea Nitrogen 10 mg/dL (9-20); Calcium 8.4 mg/dL (8.4-10.2); Carbon Dioxide 25 mmol/L (22-30); Chloride 109 mmol/L (98-107); Glucose 111 mg/dL (74-99); Non-African American GFR(CKD) >90 (>60 ml/min/1.73 sqM); Sodium 137 mmol/L (137-145)
[2024-05-06] MEDS: PANTOPRAZOLE 40 MG TABLET PO SCH (06:57)
--- NOTE | 2024-05-06 08:56 | P.GSCN ---
History of Present Illness Consult date: 05/06/24 Reason for Consult: EKOS candidate Requesting physician: Eugenio Poe History of present illness: Is a pleasant 69-year-old male who presented to the emergency department after experiencing acute shortness of breath with exertion as well as diaphoresis. Patient states yesterday he was up and walking he became short of breath and started getting very sweaty and his heart was racing so he sat down. Symptoms seem to improve however when he got up to walk again he became short of breath again and diaphoretic. He came in for further evaluation. He had an elevated D-dimer as well as troponins. He had a CT angiogram of the chest with findings of bilateral PE with clot burden and therefore vascular surgery was consulted. Patient denies any previous history of PE however he does have a history of a left lower extremity DVT which she states he had after receiving COVID-vaccine. He was on Eliquis for some time afterwards, however no longer taking. He denies any recent surgery, travel, he is a non-smoker and is pretty active. Was also noted that he has a left lower extremity DVT. He denies any pain in his left lower extremity or swelling that he had noticed. He currently denies any shortness of breath at rest, no chest pain. He is on 2 L of oxygen with nasal cannula saturation 91 to 95%. He is currently on IV heparin drip. Review of Systems A 14 point review systems was completed all pertinent positives and negatives as stated in the HPI. Past Medical History Past Medical History: Eye Disorder, Hyperlipidemia Additional Past Medical History / Comment(s): LT EYE CATARACT History of Any Multi-Drug Resistant Organisms: None Reported Past Surgical History: Orthopedic Surgery Additional Past Surgical History / Comment(s): RT ROTATOR CUFF REPAIR. Lt cataract removal. COLONOSCOPY Past Anesthesia/Blood Transfusion Reactions: No Reported Reaction Past Psychological History: No Psychological Hx Reported Smoking Status: Former smoker Past Alcohol Use History: Daily Additional Past Alcohol Use History / Comment(s): QUIT SMOKING APPROX 1994, SMOKED SINCE AGE 17 Past Drug Use History: None Reported - Past Family History Mother Family Medical History: No Reported History Medications and Allergies Home Medications Medication Instructions Recorded Confirmed Type Aspirin 81 mg PO HS 07/27/14 05/05/24 History Rosuvastatin [Crestor] 20 mg PO HS 05/05/24 05/05/24 History Allergies Allergy/AdvReac Type Severity Reaction Status Date / Time No Known Allergies Allergy Verified 05/05/24 16:18 Surgical - Exam Vital Signs Temp Pulse Resp BP Pulse Ox 98.2 F 108 H 18 177/108 95 05/05/24 16:14 05/05/24 16:14 05/05/24 16:14 05/05/24 16:14 05/05/24 16:14 General appearance: The patient is alert, oriented, appears in no acute distress. HET: Head is normocephalic and atraumatic. Pupils are equal and reactive. Neck: Supple. Heart: Regular. Lungs: Equal expansion, normal respiratory effort. Abdomen: Soft, nontender, nondistended. Extremities: Normal skin color and turgor. Palpable bilateral DP pulses. No lower extremity swelling. Neurological: No focal deficits. Strength and sensation are grossly intact. Results - Labs 05/06/24 06:12 05/06/24 06:12 Abnormal Lab Results - Last 24 Hours (Table) 05/05/24 05/05/24 05/05/24 Range/Units 16:32 16:32 16:32 RBC (4.30-5.90) m/uL APTT (22.0-30.0) sec D-Dimer 18.36 H (<0.60) mg/L FEU Chloride (98-107) mmol/L BUN 8 L (9-20) mg/dL Glucose 111 H (74-99) mg/dL Troponin I 0.600 H* (0.000-0.034) ng/mL Total Protein 8.6 H (6.3-8.2) g/dL Albumin 5.1 H (3.5-5.0) g/dL 05/05/24 05/05/24 05/05/24 Range/Units 18:27 19:40 23:57 RBC (4.30-5.90) m/uL APTT 87.1 H (22.0-30.0) sec D-Dimer (<0.60) mg/L FEU Chloride (98-107) mmol/L BUN (9-20) mg/dL Glucose (74-99) mg/dL Troponin I 0.482 H* 0.484 H* (0.000-0.034) ng/mL Total Protein (6.3-8.2) g/dL Albumin (3.5-5.0) g/dL 05/05/24 05/06/24 05/06/24 Range/Units 23:57 03:39 06:12 RBC 4.03 L (4.30-5.90) m/uL APTT (22.0-30.0) sec D-Dimer (<0.60) mg/L FEU Chloride (98-107) mmol/L BUN (9-20) mg/dL Glucose (74-99) mg/dL Troponin I 0.289 H* 0.204 H* (0.000-0.034) ng/mL Total Protein (6.3-8.2) g/dL Albumin (3.5-5.0) g/dL 05/06/24 05/06/24 Range/Units 06:12 06:12 RBC (4.30-5.90) m/uL APTT 67.5 H (22.0-30.0) sec D-Dimer (<0.60) mg/L FEU Chloride 109 H (98-107) mmol/L BUN (9-20) mg/dL Glucose 111 H (74-99) mg/dL Troponin I (0.000-0.034) ng/mL Total Protein (6.3-8.2) g/dL Albumin (3.5-5.0) g/dL Diabetes panel 05/05/24 05/06/24 Range/Units 16:32 06:12 Sodium 143 137 (137-145) mmol/L Potassium 4.7 4.0 (3.5-5.1) mmol/L Chloride 102 109 H (98-107) mmol/L Carbon Dioxide 28 25 (22-30) mmol/L BUN 8 L 10 (9-20) mg/dL Creatinine 0.83 0.80 (0.66-1.25) mg/dL Glucose 111 H 111 H (74-99) mg/dL Calcium 9.5 8.4 (8.4-10.2) mg/dL AST 35 (17-59) U/L ALT 28 (4-49) U/L Alkaline Phosphatase 74 (38-126) U/L Total Protein 8.6 H (6.3-8.2) g/dL Albumin 5.1 H (3.5-5.0) g/dL Calcium panel 05/05/24 05/06/24 Range/Units 16:32 06:12 Calcium 9.5 8.4 (8.4-10.2) mg/dL Albumin 5.1 H (3.5-5.0) g/dL Pituitary panel 05/05/24 05/06/24 Range/Units 16:32 06:12 Sodium 143 137 (137-145) mmol/L Potassium 4.7 4.0 (3.5-5.1) mmol/L Chloride 102 109 H (98-107) mmol/L Carbon Dioxide 28 25 (22-30) mmol/L BUN 8 L 10 (9-20) mg/dL Creatinine 0.83 0.80 (0.66-1.25) mg/dL Glucose 111 H 111 H (74-99) mg/dL Calcium 9.5 8.4 (8.4-10.2) mg/dL Adrenal panel 05/05/24 05/06/24 Range/Units 16:32 06:12 Sodium 143 137 (137-145) mmol/L Potassium 4.7 4.0 (3.5-5.1) mmol/L Chloride 102 109 H (98-107) mmol/L Carbon Dioxide 28 25 (22-30) mmol/L BUN 8 L 10 (9-20) mg/dL Creatinine 0.83 0.80 (0.66-1.25) mg/dL Glucose 111 H 111 H (74-99) mg/dL Calcium 9.5 8.4 (8.4-10.2) mg/dL Total Bilirubin 0.6 (0.2-1.3) mg/dL AST 35 (17-59) U/L ALT 28 (4-49) U/L Alkaline Phosphatase 74 (38-126) U/L Total Protein 8.6 H (6.3-8.2) g/dL Albumin 5.1 H (3.5-5.0) g/dL - Imaging Comments: Chest CT angiogram reports acute pulmonary emboli involving the bilateral main, lobar, segmental and subsegmental pulmonary artery branches with overall large clot burden. Additionally there are CT findings suggestive of right heart strain. Trace bilateral pleural effusions. Venous duplex right leg negative for DVT. Left leg echo seen within the proximal popliteal vein. This area appears nonocclusive. Suspect partial acute deep vein thrombosis in the proximal popliteal vein. Chest x-ray reports no acute cardiopulmonary disease/process Assessment and Plan Assessment: 1. Bilateral pulmonary emboli with large clot burden, suspected right heart strain 2. Elevated troponins 3. Left lower extremity deep vein thrombosis Plan: 1. Keep n.p.o. 2. Continue heparin drip 3. Will plan for pulmonary thrombectomy with [facility] today 4. Consider possible outpatient referral to hematology for unprovoked PE - reviewed CTA- large saddle PE noted, discussed with patient recommendation for thrombectomy whom agrees. - will perform later today. Thank you for this consultation, we will continue to follow.
--- NOTE | 2024-05-06 09:24 | CA ---
Transthoracic Echo Report Name: Franklin Lee Age: 69 Gender: M : 1955 Exam Date: 05/05/2024 18:39 Exam Location: [facility] Ht (in): 75 Wt (lb): 220 Ordering Physician: Eugenio Poe DO Attending/Referring Phys: [id number], Lui Riveting Machine Operator Marlene Hoyt RDCS Procedure CPT: Indications: PE, ekos candidate Cardiac Hx: Technical Quality: Fair Contrast 1: Total Dose (mL): Contrast 2: Total Dose (mL): MEASUREMENTS (Male / Female) Normal Values 2D ECHO LV Diastolic Diameter PLAX 4.3 cm 4.2 - 5.9 / 3.9 - 5.3 cm LV Systolic Diameter PLAX 2.8 cm IVS Diastolic Thickness 1.0 cm 0.6 - 1.0 / 0.6 - 0.9 cm LVPW Diastolic Thickness 1.1 cm 0.6 - 1.0 / 0.6 - 0.9 cm LV Relative Wall Thickness 0.5 LVOT Diameter 2.6 cm LV Diastolic Volume MOD BP 90.2 cm??? 67 - 155 / 56 - 104 cm??? LV Systolic Volume MOD BP 39.6 cm??? 22 - 58 / 19 - 49 cm??? LV Ejection Fraction MOD BP 56.1 % >= 55 % LV Cardiac Index MOD BP 2212.1 cm???/min???m??? LV Diastolic Volume MOD 4C 95.3 cm??? LV Systolic Volume MOD 4C 44.1 cm??? LV Ejection Fraction MOD 4C 53.7 % LV Cardiac Index MOD 4C 2237.8 cm???/min???m??? LV Diastolic Length 4C 8.7 cm LV Systolic Length 4C 7.2 cm LV Diastolic Volume MOD 2C 77.9 cm??? LV Systolic Volume MOD 2C 33.6 cm??? LV Ejection Fraction MOD 2C 56.9 % LV Cardiac Index MOD 2C 1935.2 cm???/min???m??? LV Diastolic Length 2C 7.9 cm LV Systolic Length 2C 6.8 cm LA Volume 46.0 cm??? 18 - 58 / 22 - 52 cm??? LA Volume Index 19.9 cm???/m??? 16 - 28 cm???/m??? Ascending Aorta Diameter 3.3 cm DOPPLER AV Peak Velocity 122.2 cm/s AV Peak Gradient 6.0 mmHg AV Mean Velocity 89.7 cm/s AV Mean Gradient 3.5 mmHg AV Velocity Time Integral 21.3 cm LVOT Peak Velocity 102.0 cm/s LVOT Peak Gradient 4.2 mmHg LVOT Velocity Time Integral 18.9 cm LVOT Stroke Volume 99.0 cm??? LVOT Stroke Volume Index 43.3 ml/m??? LVOT Cardiac Index 4327.5 cm???/min???m??? AV Area Cont Eq vti 4.6 cm??? AV Area Cont Eq pk 4.4 cm??? TR Peak Velocity 319.9 cm/s TR Peak Gradient 40.9 mmHg Right Atrial Pressure 5.0 mmHg Pulmonary Artery Systolic Pressu 45.9 mmHg Right Ventricular Systolic Press 45.9 mmHg PV Peak Velocity 85.6 cm/s PV Peak Gradient 2.9 mmHg FINDINGS Left Ventricle Left ventricular ejection fraction is estimated at 55-60 %. Left ventricular cavity size normal. Left ventricular wall thickness normal. No obvious regional wall motion abnormalities. Right Ventricle Right ventricular dilatation . Moderate pulmonary hypertension. Right ventricular hypokinesis Right Atrium Mild right atrial dilatation. Left Atrium Normal left atrial size. Mitral Valve Structurally normal mitral valve. No evidence for mitral valve prolapse. No mitral stenosis. Trace mitral regurgitation. Aortic Valve Trileaflet aortic valve. Aortic valve sclerosis. No aortic stenosis. No aortic regurgitation. Tricuspid Valve Structurally normal tricuspid valve. No tricuspid stenosis. [id number] tricuspid regurgitation. Pulmonic Valve Pulmonic valve not well visualized. No pulmonic stenosis. No pulmonic regurgitation. Pericardium No pericardial effusion. Aorta Normal size aortic root and proximal ascending aorta. CONCLUSIONS 1. Normal left ventricular size and systolic function 2. [id number] tricuspid regurgitation with moderate pulmonary hypertension 3. Dilated right ventricle with hypokinesis sparing the apex Previewed by: Dr. Julia Chatman MD (Electronically Signed) Final Date: 06 May 2024 09:23
[2024-05-06 11:40] LABS: HCT 42.9 % (39.0-53.0); HGB 14.2 gm/dL (13.0-17.5); MCH 32.8 pg (25.0-35.0); MCV 99.4 fL (80.0-100.0); Mean Platelet Volume 6.8; Platelet Count 215 k/uL (150-450); RBC 4.31 m/uL (4.30-5.90); RDW 11.7 % (11.5-15.5); WBC 6.9 k/uL (3.8-10.6)
--- NOTE | 2024-05-06 11:57 | P.HPIM ---
History of Present Illness H&P Date: 05/06/24 This is a 69-year-old male medical history significant for left eye cataract with removal, hyperlipidemia, former smoker, DVT in the past, was anticoagulated with eliquis at that time. Patient comes in to the hospital sent in by his primary care provider secondary to shortness of breath and chest pressure. aThe chest pain is gone at this time. States he has had progressive shortness of breath at home, worse with activity. No dizziness or lightheadedness. He has not had any fever or chills. Patient does have a extensive family history of coronary artery disease. Chest X-ray on admission was negative. Found to have a significantly elevated D-dimer of 18.36, troponin level has been positive at 0.600, 0.482, 0.484, 0.2889, 0.204. He underwent chest CT angiography Finding was an acute pulmonary emboli involving the bilateral main lobar segmental and subsegmental pulmonary artery branches with overall large clot burden. There are 3 CT findings suggestive of right heart strain. There is trace bilateral pleural effusions. Venous Doppler shows an acute partial DVT in the left leg that appears to be nonocclusive in the popliteal vein. Patient was started on high intensity heparin infusion with a consult placed to cardiology, pulmonary, and vascular services. He was admitted to the ICU. He is mildly hypoxic currently requiring oxygen in the 2 to 3 L of nasal cannula. At this time he is in normal sinus rhythm. He will be going for a mechanical thrombectomy today. REVIEW OF SYSTEMS: CONSTITUTIONAL: No fever, no malaise, no fatigue. HEENT: No recent visual problems or hearing problems. Denied any sore throat. CARDIOVASCULAR: No chest pain, orthopnea, PND, no palpitations, no syncope. PULMONARY: No shortness of breath, no cough, no hemoptysis. GASTROINTESTINAL: No diarrhea, no nausea, no vomiting, no abdominal pain. NEUROLOGICAL: No headaches, no weakness, no numbness. HEMATOLOGICAL: Denies any bleeding or petechiae. GENITOURINARY: Denies any burning micturition, frequency, or urgency. MUSCULOSKELETAL/RHEUMATOLOGICAL: Denies any joint pain, swelling, or any muscle pain. ENDOCRINE: Denies any polyuria or polydipsia. The rest of the 14-point review of systems is negative. PHYSICAL EXAMINATION: GENERAL: The patient is alert and oriented x3, not in any acute distress. Well developed, well nourished. HEENT: Pupils are round and equally reacting to light. EOMI. No scleral icterus. No conjunctival pallor. Normocephalic, atraumatic. No pharyngeal erythema. No thyromegaly. CARDIOVASCULAR: S1 and S2 present. No murmurs, rubs, or gallops. PULMONARY: Chest is clear to auscultation, no wheezing or crackles. ABDOMEN: Soft, nontender, nondistended, normoactive bowel sounds. No palpable organomegaly. MUSCULOSKELETAL: No joint swelling or deformity. EXTREMITIES: No cyanosis, clubbing, or pedal edema. NEUROLOGICAL: Gross neurological examination did not reveal any focal deficits. SKIN: No rashes. Assessment and Plan Acute bilateral pulmonary emboli with evidence for right heart strain on IV heparin infusion scheduled to undergo Mechanical thrombectomy with Dr. Joaquin today Acute hypoxemic respiratory failure secondary to above Acute partial left leg DVT Hx of DVT in the past for which he was anticoagulated with eliquis at that time Hyperlipidemia Former Smoker Left eye cataract with removal GI prophylaxis DVT prophylaxis as mentioned IV heparin Full Code Plan Patient will be going for mechanical thrombectomy Resumed on home medications aspirin 81 mg daily, and statin therapy Echocardiogram is ordered and pending Patient will be monitored closely in the intensive care unit Continue cardiac telemetry Continue oxygen therapy The impression and plan of care has been dictated by Lauren Resendiz, Nurse Practitioner as directed. Dr. Min MD I have performed a history and physical examination and medical decision making of this patient, discussed the same with the dictator, and agree with the dictators assessment and plan as written, documented as a scribe. Based on total visit time, I have performed more than 50% of this visit. Past Medical History Past Medical History: Eye Disorder, Hyperlipidemia Additional Past Medical History / Comment(s): LT EYE CATARACT History of Any Multi-Drug Resistant Organisms: None Reported Past Surgical History: Orthopedic Surgery Additional Past Surgical History / Comment(s): RT ROTATOR CUFF REPAIR. Lt cataract removal. COLONOSCOPY Past Anesthesia/Blood Transfusion Reactions: No Reported Reaction Past Psychological History: No Psychological Hx Reported Smoking Status: Former smoker Past Alcohol Use History: Daily Additional Past Alcohol Use History / Comment(s): QUIT SMOKING APPROX 1994, SMOKED SINCE AGE 17 Past Drug Use History: None Reported - Past Family History Mother Family Medical History: No Reported History Medications and Allergies Home Medications Medication Instructions Recorded Confirmed Type Aspirin 81 mg PO HS 07/27/14 05/05/24 History Rosuvastatin [Crestor] 20 mg PO HS 05/05/24 05/05/24 History Allergies Allergy/AdvReac Type Severity Reaction Status Date / Time No Known Allergies Allergy Verified 05/05/24 16:18 Physical Exam Vitals: Vital Signs Temp Pulse Resp BP Pulse Ox 05/06/24 08:00 98.4 F 85 15 138/88 95 05/06/24 07:00 70 18 164/89 95 05/06/24 06:00 75 9 L 164/92 91 L 05/06/24 05:00 98.2 F 69 13 152/81 94 L 05/06/24 04:00 98.2 F 71 14 149/86 95 05/06/24 03:00 73 13 137/64 93 L 05/06/24 02:00 73 15 149/81 94 L 05/06/24 01:00 82 16 145/99 95 05/06/24 00:00 98.9 F 86 16 169/95 94 L 05/05/24 23:00 81 14 162/97 93 L 05/05/24 22:00 87 18 158/107 92 L 05/05/24 21:00 89 10 L 177/110 94 L 05/05/24 20:50 98 20 177/110 05/05/24 19:56 91 18 171/109 97 05/05/24 18:36 95 05/05/24 18:24 95 20 160/105 94 L 05/05/24 17:05 110 H 20 166/97 93 L 05/05/24 16:14 98.2 F 108 H 18 177/108 95 Intake and Output 05/05/24 05/06/24 05/06/24 22:59 06:59 14:59 Intake Total 260 599.447 209.899 Output Total 700 Balance 260 -100.553 209.899 Intake: Intake, IV Titration 260 599.447 209.899 Amount Heparin Sod,Pork in 0.45% 119.447 109.899 NaCl 25,000 unit In 0.45 % NaCl 1 250ml.bag @ 18 UNITS/KG/HR 17.962 mls/hr IV .[id number] [facility] Rx#: [id number] Sodium Chloride 0.9% 1, 260 480 100 000 ml @ 50 mls/hr IV . Q20H [facility] Rx#:[id number] Output: Urine 700 Other: Voiding Method Toilet Toilet Weight 99.79 kg 105.5 kg Results CBC & Chem 7: 05/06/24 11:20 05/06/24 06:12 Labs: Abnormal Lab Results - Last 24 Hours (Table) 05/05/24 05/05/24 05/05/24 Range/Units 16:32 16:32 16:32 RBC (4.30-5.90) m/uL APTT (22.0-30.0) sec D-Dimer 18.36 H (<0.60) mg/L FEU Chloride (98-107) mmol/L BUN 8 L (9-20) mg/dL Glucose 111 H (74-99) mg/dL Troponin I 0.600 H* (0.000-0.034) ng/mL Total Protein 8.6 H (6.3-8.2) g/dL Albumin 5.1 H (3.5-5.0) g/dL 05/05/24 05/05/24 05/05/24 Range/Units 18:27 19:40 23:57 RBC (4.30-5.90) m/uL APTT 87.1 H (22.0-30.0) sec D-Dimer (<0.60) mg/L FEU Chloride (98-107) mmol/L BUN (9-20) mg/dL Glucose (74-99) mg/dL Troponin I 0.482 H* 0.484 H* (0.000-0.034) ng/mL Total Protein (6.3-8.2) g/dL Albumin (3.5-5.0) g/dL 05/05/24 05/06/24 05/06/24 Range/Units 23:57 03:39 06:12 RBC 4.03 L (4.30-5.90) m/uL APTT (22.0-30.0) sec D-Dimer (<0.60) mg/L FEU Chloride (98-107) mmol/L BUN (9-20) mg/dL Glucose (74-99) mg/dL Troponin I 0.289 H* 0.204 H* (0.000-0.034) ng/mL Total Protein (6.3-8.2) g/dL Albumin (3.5-5.0) g/dL 05/06/24 05/06/24 Range/Units 06:12 06:12 RBC (4.30-5.90) m/uL APTT 67.5 H (22.0-30.0) sec D-Dimer (<0.60) mg/L FEU Chloride 109 H (98-107) mmol/L BUN (9-20) mg/dL Glucose 111 H (74-99) mg/dL Troponin I (0.000-0.034) ng/mL Total Protein (6.3-8.2) g/dL Albumin (3.5-5.0) g/dL Thrombosis Risk Factor Assmnt - Choose All That Apply Any of the Below Risk Factors Present?: No Other Risk Factors: Yes Each Risk Factor Represents 2 Points: Age 61-74 years Thrombosis Risk Factor Assessment Total Risk Factor Score: 2 Thrombosis Risk Factor Assessment Level: Low Risk Assessment and Plan Time with Patient: Less than 30
[2024-05-06] MEDS: IV FLUID CONTINUATION 700 ML IV ONE (14:20)
[2024-05-06] MEDS: MIDAZOLAM 2 MG/2 ML VIAL IVP ONE (14:28)
[2024-05-06] MEDS: fentaNYL (PF) 50 MCG/ML 2 ML AMP IVP ONE (14:30)
[2024-05-06] MEDS: LIDOCAINE 1% INJ 10MG/ML (20 ML MDV) SQ ONE (14:30)
[2024-05-06] MEDS: HEPARIN SODIUM 1,000 UN/ML (10ML VL) IVP ONE (14:40)
[2024-05-06] MEDS: IOPAMIDOL-370 100ML BTL INJ ONE (15:01)
--- NOTE | 2024-05-06 15:15 | P.OP ---
Date of Procedure: 05/06/24 Preoperative Diagnosis: Bilateral saddle pulmonary embolism with right heart strain Postoperative Diagnosis: Same Procedure(s) Performed: Ultrasound-guided right common femoral vein access Pulmonary angiogram with selective right and left pulmonary artery angiograms Percutaneous thrombectomy with Inari flowtriever with extirpation of clot from right main pulmonary artery Percutaneous thrombectomy with Inari flowtriever with extirpation of clot from right truncus anterior Percutaneous thrombectomy with Inari flowtriever with extirpation of clot from right lobar pulmonary artery Percutaneous thrombectomy with Inari flowtriever with extirpation of clot from the left main pulmonary artery Percutaneous thrombectomy with Inari flowtriever with extirpation of the clot from the left lobar pulmonary artery Conscious sedation x 35 minutes Anesthesia: local Surgeon: Will Joaquin Estimated Blood Loss (ml): 100 Pathology: none sent Condition: stable Disposition: ICU Indications for Procedure: 69-year-old gentleman presented to the emergency department secondary to shortness of breath and was found to have bilateral saddle PE with right heart strain and presents to the [facility] for percutaneous thrombectomy with Inari device. Description of Procedure: After written and informed consent was obtained the patient all risks, benefits and complications were described patient was brought to the [facility] laid in a supine position. The area of the groins were prepped and draped in usual sterile fashion. Utilizing ultrasound guidance the right common femoral vein was located and shown to be patent without thrombus and then was accessed with a micropuncture kit and utilizing Seldinger technique an 8-Armenian sheath was placed. 035 guidewire was then advanced into the IVC under fluoroscopic guidance. Track was dilated and the Inari 24-Armenian sheath was placed. An angled pigtail catheter was then placed and utilizing a J-wire the heart was entered and advanced into the pulmonary artery. Pigtail catheter was then removed over the wire and a JR4 catheter was placed and the right pulmonary artery was entered and wire was placed to the main right pulmonary artery. The wire was then exchanged for an Amplatz wire in normal fashion. Patient was administered heparin at this time. A thrombectomy catheter was then advanced and pulmonary angiogram was obtained demonstrating thrombus within the right main and segmental branches as well as the left main. Mechanical thrombectomy was then performed with aspiration of multiple large clots. Aspiration was performed 4 times. Right pulmonary angiogram was then obtained demonstrating resolution of thrombus within the main pulmonary artery as well as the truncus anterior. Catheter was then selectively placed in the left main pulmonary artery and mechanical thrombectomy was performed 2 times. Pulmonary and gram was then obtained demonstrating complete resolution of thrombus with good filling to the outer aspects of the long on both sides. Once completed all catheters and wires were removed. A suture was placed in the right groin after the sheath was removed for hemostasis. Patient tolerated procedure well and was sent to recovery.
--- NOTE | 2024-05-06 16:03 | IR ---
EXAMINATION TYPE: IR transcath embolizat therapy DATE OF EXAM: 05/06/2024 3:45 PM COMPARISON: Pre Operative Images if available both CT/MRI or plain film CLINICAL INDICATION: Male, 69 years old with history of bilateral PE, 11.5min fluoro, [id number]; TECHNIQUE: IR transcath embolizat therapy, multiple fluoroscopic images provided for procedure. Total fluoroscopy time: 11.5 seconds Total submitted images to PACS: 86 DAP: 14.038 mGym2 Gycm2 uGym2 cGycm2 or equivalent. FINDINGS: IMPRESSION: 1. Report was generated for administrative purposes only. 2. Please see the operative/procedural note for further details. [facility], , 05/06/2024 4:00 PM
[2024-05-06] MEDS: ATORVASTATIN 40 MG TAB PO SCH (20:09)
[2024-05-06] MEDS: ASPIRIN 81 MG PO SCH (20:09)
[2024-05-07 06:05] LABS: HCT 37.8 % (39.0-53.0); HGB 12.4 gm/dL (13.0-17.5); MCH 32.7 pg (25.0-35.0); MCHC 32.7 g/dL (31.0-37.0); Mean Platelet Volume 6.9; Platelet Count 202 k/uL (150-450); RBC 3.78 m/uL (4.30-5.90); RDW 11.7 % (11.5-15.5); WBC 7.3 k/uL (3.8-10.6)
[2024-05-07 08:24] VITALS: TEMP 98.1
[2024-05-07 09:12] LABS: African American GFR (CKD) >90 (>60 ml/min/1.73 sqM); Anion Gap 6 mmol/L; Blood Urea Nitrogen 13 mg/dL (9-20); Carbon Dioxide 25 mmol/L (22-30); Chloride 108 mmol/L (98-107); Glucose 111 mg/dL (74-99); Magnesium 2.2 mg/dL (1.6-2.3); Non-African American GFR(CKD) 88 (>60 ml/min/1.73 sqM); Potassium 4.5 mmol/L (3.5-5.1); Sodium 139 mmol/L (137-145)
--- NOTE | 2024-05-07 09:18 | P.PN ---
Subjective Progress Note Date: 05/07/24 Principal diagnosis: Bilateral pulmonary embolism, DVT Patient is seen and examined today as a follow-up. He is sitting up in bed and appears in no acute distress. He states his breathing is better. He is currently on 2 L of nasal cannula with oxygen saturation at 96 to 97%. He has not been up yet and ambulating. Denies any pain or bleeding in the right groin. No lower extremity pain. WBC 7.3 hemoglobin 12.4 platelet count 202,000. PTT was elevated therefore heparin drip is currently on hold per protocol. Objective - Vital Signs Vital signs: Vital Signs Temp 98.1 F 05/07/24 08:00 Pulse 79 05/07/24 08:00 Resp 30 H 05/07/24 08:00 BP 149/88 05/07/24 08:00 Pulse Ox 96 05/07/24 08:00 FiO2 Intake & Output 05/06/24 05/07/24 05/07/24 18:59 06:59 18:59 Intake Total 9715.826 9635.968 100 Output Total 800 700 Balance 569.899 798.968 100 Weight 107.6 kg Intake: IV 300 Intake, IV Titration 709.899 958.968 100 Amount Heparin Sod,Pork in 0.45% 109.899 358.968 NaCl 25,000 unit In 0.45 % NaCl 1 250ml.bag @ 18 UNITS/KG/HR 17.962 mls/hr IV .[id number] [facility] Rx#: [id number] Sodium Chloride 0.9% 1, 600 600 100 000 ml @ 50 mls/hr IV . Q20H [facility] Rx#:[id number] Oral 360 540 Output: Urine 800 700 Other: Voiding Method Toilet Toilet Toilet - Exam General appearance: The patient is alert, oriented, appears in no acute d istress. HET: Head is normocephalic and atraumatic. Pupils are equal and reactive. Neck: Supple. Heart: Regular. Lungs: Equal expansion, normal respiratory effort. Abdomen: Soft, nontender, nondistended. Extremities: Normal skin color and turgor. No swelling. Bilateral palpable DP pulses. Neurological: No focal deficits. Strength and sensation are grossly intact. - Labs CBC & Chem 7: 05/07/24 05:43 05/06/24 06:12 Labs: Abnormal Lab Results - Last 24 Hours (Table) 05/07/24 05/07/24 Range/Units 05:43 05:43 RBC 3.78 L (4.30-5.90) m/uL Hgb 12.4 L (13.0-17.5) gm/dL Hct 37.8 L (39.0-53.0) % APTT 115.1 H* (22.0-30.0) sec Assessment and Plan Assessment: 1. Bilateral saddle pulmonary embolism with right heart strain status post percutaneous thrombectomy 2. Elevated troponins secondary to #1 3. Left lower extremity deep vein thrombosis Plan: 1. May discontinue heparin drip and start Eliquis 2. Encourage ambulation, evaluate for home oxygen use 3. Consider possible outpatient referral to hematology for unprovoked PE 4. Right groin suture removed. Discharge instructions reviewed with patient. Thank you for this consultation, patient is cleared from vascular surgery for discharge. The impression and plan of care has been dictated as directed. I performed a history and examination of this patient, discussed the same with the dictator. I agree with the dictator's note ,documented as a scribe. Any additional findings or plans will be noted.
[2024-05-07] MEDS: Apixaban Initiation Dose--VTE 5 MG TAB PO SCH (10:17)
[2024-05-07 13:59] VITALS: BP 143/67; PULSE 72; RESP 14
--- NOTE | 2024-05-07 19:23 | P.PN ---
Subjective Progress Note Date: 05/07/24 Patient is a 69-year-old white male with past medical history significant for hyperlipidemia, left lower extremity DVT. Starting yesterday, patient developed acute shortness of breath with any activity, subsides with rest. Associated symptoms including diaphoresis, heart palpitations, and substernal chest pain with deep breathing. He has had a dry non-productive for three weeks. No infectious symptoms. Patient does report history of left lower extremity blood clots, he completed outpatient treatment with Eliquis. He is not currently on any anticoagulation. Denies recent hospitalization, surgeries, trauma, prolonged travel. Denies unilateral lower extremity swelling or pain. He did present to the ED department yesterday evening, underwent chest CTA protocol showing an acute saddle pulmonary emboli involving the bilateral main, lobar, segmental and septic segmental pulmonary artery branches. Flattening of the interventricular septum suggestive of right heart strain. Pulmonary artery was of normal size. No acute process of the parenchyma. He was admitted to the intensive care unit. I am currently evaluating this patient in room 265. He is resting comfortably on 2 L/min nasal cannula. Breathing is non-labored. Blood pressure is actually hypertensive. A follow-up echocardiogram is pending. Vascular surgery has been made aware. He is currently on a high intensity heparin infusion per protocol. Normal saline is also infusing at 130 mL/h. hemodynamically, patient is stable. Nontachycardic. He is actually hypertensive. CBC: WBC count 9.5, hemoglobin 17.5, hematocrit 50.9, platelets 251. D-dimer was elevated at 18.36. CMP: Sodium 143, potassium 4.7, chloride 102, serum bicarb 28, BUN 8, creatinine 0.83, glucose 111. LFTs unremarkable. Serial troponins elevated at 0.6, 0.48, and 0.48 respectively. Awaiting vascular recommendations. On 05/07/2024, the patient is being seen for a follow-up. The patient is doing extremely well. The patient is calm and comfortable. The patient is post clot thrombectomy using the Inari device and the patient is feeling much better and and the patient denies having any significant shortness of breath. Oxygenation remained stable and the patient was weaned off from 2 L and currently is on room air oxygen. Hemodynamically stable. IV heparin has been discontinued and the patient is currently on anticoagulation with Eliquis. No pleurisy. No hemoptysis. No chest pain. No other new complaints otherwise for now. The [facility] te cell count is 7.3 with a hematoma 0.4. Electrolytes are all within normal limits. BUN is 13 with a creatinine of 0.86. The patient will be moved out of the intensive care unit today. Objective - Vital Signs Vital signs: Vital Signs Temp 98.1 F 05/07/24 08:00 Pulse 72 05/07/24 13:00 Resp 14 05/07/24 13:00 BP 143/67 05/07/24 12:00 Pulse Ox 95 05/07/24 13:00 FiO2 Intake & Output 05/07/24 05/07/24 05/08/24 06:59 18:59 06:59 Intake Total 1498.968 250 Output Total 700 Balance 798.968 250 Weight 107.6 kg Intake: Intake, IV Titration 958.968 250 Amount Heparin Sod,Pork in 0.45% 358.968 NaCl 25,000 unit In 0.45 % NaCl 1 250ml.bag @ 18 UNITS/KG/HR 17.962 mls/hr IV .[id number] [facility] Rx#: [id number] Sodium Chloride 0.9% 1, 600 250 000 ml @ 50 mls/hr IV . Q20H [facility] Rx#:[id number] Oral 540 Output: Urine 700 Other: Voiding Method Toilet Toilet # Voids 0 - Exam The patient appeared well nourished and normally developed. Vital signs as documented. Head exam is unremarkable. No scleral icterus or corneal arcus noted. Neck is without jugular venous distension, thyromegaly, or carotid bruits. Carotid upstrokes are brisk bilaterally. Lungs are clear to auscultation and percussion. Cardiac exam reveals the PMI to be normally sized and situated. Rhythm is regular. First and second heart sounds normal. No murmurs, rubs or gallops. Abdominal exam reveals normal bowel sounds, no masses, no organomegaly and no aortic enlargement. Extremities are nonedematous and both femoral and pedal pulses are normal. Examination of the skin revealed no evidence of significant rashes, suspicious appearing nevi or other concerning lesions. Neurologically, the patient is awake and alert and the patient does not have any focal neurological deficit. Cranial nerves are essentially intact. - Labs CBC & Chem 7: 05/07/24 05:43 05/07/24 05:32 Labs: Abnormal Lab Results - Last 24 Hours (Table) 05/07/24 05/07/24 05/07/24 Range/Units 05:32 05:43 05:43 RBC 3.78 L (4.30-5.90) m/uL Hgb 12.4 L (13.0-17.5) gm/dL Hct 37.8 L (39.0-53.0) % APTT 115.1 H* (22.0-30.0) sec Chloride 108 H (98-107) mmol/L Glucose 111 H (74-99) mg/dL Assessment and Plan Assessment: Submassive, acute saddle pulmonary emboli involving the bilateral main, lobar, segmental and septic segmental pulmonary artery branches. Flattening of the interventricular septum suggestive of right heart strain. Pulmonary artery was of normal size. No acute process of the parenchyma. The patient is supposed clot thrombectomy using the Inari device and the patient is done extremely well, remains hemodynamically stable and oxygenation is improved. No significant shortness of breath Acute hypoxemic respiratory failure, secondary to above, improved and the patient is currently on room air oxygen Elevated troponins, secondary to above History of hyperlipidemia History of left lower extremity DVT (2021), previously completed anticoagulation, Venous Doppler of the lower extremity showed certain echoes within the proximal popliteal vein on the left could be a nonocclusive partial acute DVT of the proximal popliteal vein. History of herpes zoster Former tobacco dependence Plan: Patient will be moved out of the intensive care unit The patient is currently on anticoagulation with Eliquis and IV heparin has been discontinued No significant shortness of breath Hemodynamically stable Doppler of the lower extremities was noted and the patient has a partially acute clot involving the proximal popliteal vein. Will follow
== END 2024-05-07 15:18 | disposition home or self-care (01) | DRG 163 ==
LOC: EC 16:09 → 2SICU 18:25
PROVIDERS: ADMIT Hospitalist; ATTEND Hospitalist
PROC: B31T1ZZ Fluoroscopy of Left Pulmonary Artery using Low Osmolar Contrast (ICD-10-PCS; 2024-05-06)
PROC: B31S1ZZ Fluoroscopy of Right Pulmonary Artery using Low Osmolar Contrast (ICD-10-PCS; 2024-05-06)
PROC: 02CP3ZZ Extirpation of Matter from Pulmonary Trunk, Percutaneous Approach (ICD-10-PCS; principal; 2024-05-06 14:15)
PROC: 02CQ3ZZ Extirpation of Matter from Right Pulmonary Artery, Percutaneous Approach (ICD-10-PCS; 2024-05-06 14:15)
PROC: 02CR3ZZ Extirpation of Matter from Left Pulmonary Artery, Percutaneous Approach (ICD-10-PCS; 2024-05-06 14:15)
DX: I26.92 Saddle embolus of pulmonary artery without acute cor pulmonale (principal); J96.01 Acute respiratory failure with hypoxia; I48.92 Unspecified atrial flutter; I82.432 Acute embolism and thrombosis of left popliteal vein; I11.9 Hypertensive heart disease without heart failure; E78.00 Pure hypercholesterolemia, unspecified; Z86.718 Personal history of other venous thrombosis and embolism; Z87.891 Personal history of nicotine dependence; Z79.82 Long term (current) use of aspirin; Z79.899 Other long term (current) drug therapy
CPT/HCPCS: 36415; 71046; 71275; 80048; 80053; 83735; 84484; 85025; 85027; 85379; 85610; 85730; 93005; 93306; 93970; 96365; 99291; 99292

== ENCOUNTER → 2024-05-15 | Outpatient (CLI) | payer MEDICARE ==
[2024-05-15 11:29] LABS: African American GFR (CKD) 77 (>60 ml/min/1.73 sqM); Blood Urea Nitrogen 17 mg/dL (9-20); Non-African American GFR(CKD) 66 (>60 ml/min/1.73 sqM)
--- NOTE | 2024-05-15 14:18 | CT ---
EXAMINATION TYPE: CT abdomen pelvis w con CT DLP: 1350.4 mGycm, Automated exposure control for dose reduction was used. DATE OF EXAM: 05/15/2024 1:27 PM COMPARISON: CTA chest 05/05/2024 CLINICAL INDICATION:Male, 69 years old with history of I26.99 OTHER PULMONARY EMBOLISM WITHOUT ACUTE COR; Recent PE, looking for source TECHNIQUE: Standard CT of the abdomen and pelvis following the administration of 100 cc of Isovue 3 00 IV contrast material and oral contrast. Coronal and sagittal reformats were performed. FINDINGS: LOWER CHEST: Calcified granuloma within the left lateral lower lobe. Visualized lung bases are otherw ise clear. ABDOMEN LIVER: Scattered calcified granulomas. No suspicious lesion. GALLBLADDER AND BILE DUCTS: Unremarkable. PANCREAS: Unremarkable. SPLEEN: Scattered calcified granulomas. ADRENAL GLANDS: Unremarkable. KIDNEYS AND URETERS: No evidence of hydronephrosis or renal calculus. The kidneys enhance symmetrical ly. Contrast is demonstrated within both collecting systems on the delayed phase. PELVIS BLADDER: Unremarkable REPRODUCTIVE: Unremarkable. ABDOMEN & PELVIS STOMACH AND BOWEL: Small hiatal hernia, duodenum is unremarkable. Distal colonic diverticulosis witho ut evidence for acute diverticulitis. Enteric contrast reaches the mid small bowel. No focal bowel wa ll thickening or surrounding inflammatory changes. The appendix is within normal limits. No evidence of bowel obstruction. PERITONEUM: No evidence of pneumoperitoneum or free fluid. VASCULATURE: Mild atherosclerotic calcifications are present throughout the abdominal aorta and its b ranches. No evidence of aortic aneurysm. Poor evaluation of the venous vasculature due to only portal venous phase obtained. MUSCULOSKELETAL: No acute osseous abnormalities. Degenerative changes of the left SI joint with the i nterpretation. Multilevel degenerative disc disease. DISH of the lower thoracic spine. LYMPH NODES: No evidence for lymphadenopathy. SOFT TISSUE/ABDOMINAL WALL: Unremarkable IMPRESSION: 1. No acute abdominal/pelvic process. 2. Colonic diverticulosis without evidence for acute diverticulitis. 3. Sequelae of prior granulomatous disease. [facility], , 05/15/2024 2:16 PM
== END | disposition home or self-care (01) ==
LOC: RADCTMAIN 10:55
PROVIDERS: ATTEND Internal Medicine Geriatric Medicine
DX: I26.99 Other pulmonary embolism without acute cor pulmonale (principal); K57.30 Diverticulosis of large intestine without perforation or abscess without bleeding
CPT/HCPCS: 82565; 84520; 74177; 36415; Q9967